=== PATIENT | female | born 1985 | race African-American/Black ===

== ENCOUNTER 2018-03-01 16:24 | Emergency (ER) | payer MEDICAID ==
[~2018-03-01] VITALS: Ht 170.2 cm; Wt 73.0 kg
[~2018-03-01 16:24] MED LIST: FERR1TAB51
[2018-03-01 18:15] VITALS: BP 134/85
[2018-03-01] MEDS ORDERED: CEFTRIAXONE SODIUM 1 G/VIAL IM ONE (18:15)
[2018-03-01] MEDS ORDERED: LIDOCAINE HCL 1% 20ML VIAL (Pyxis) INJ INFIL ONE (18:15)
[2018-03-01] MEDS ORDERED: ACETAMINOPHEN WITH CODEINE 300/30MG TABLET PO ONE (18:15)
== END 2018-03-01 18:32 | disposition home or self-care (01) ==
LOC: ER 16:48
DX: L03.317 Cellulitis of buttock (principal)
CPT/HCPCS: 96372; 99283; J0696; J3490

== ENCOUNTER 2019-05-10 11:54 | Emergency (ER) | payer MEDICAID ==
[~2019-05-10] VITALS: Ht 172.7 cm; Wt 82.0 kg
[2019-05-10 12:02] VITALS: BP 139/86
[2019-05-10] MEDS ORDERED: CLINDAMYCIN PHOSPHATE 600MG/4ML VIAL IM ONE (12:30)
[2019-05-10] MEDS ORDERED: CLINDAMYCIN PHOSPHATE 300MG/2ML VIAL IM NR ×2 (13:00)
== END 2019-05-10 13:06 | disposition home or self-care (01) ==
LOC: ER 11:54
DX: L02.31 Cutaneous abscess of buttock (principal)
CPT/HCPCS: 10060; 96372; 99283; J3490; Z7610

== ENCOUNTER 2019-10-22 21:31 | Emergency (ER) | payer MEDICAID ==
[~2019-10-22] VITALS: Ht 172.7 cm; Wt 77.0 kg
[2019-10-23] MEDS ORDERED: CLINDAMYCIN PHOSPHATE 600MG/4ML VIAL IM ONE (00:30)
[2019-10-23 00:46] VITALS: BP 138/89
== END 2019-10-23 00:47 | disposition home or self-care (01) ==
LOC: ER 21:31
DX: L02.215 Cutaneous abscess of perineum (principal); Z98.890 Other specified postprocedural states
CPT/HCPCS: 96372; 99283; J3490

== ENCOUNTER 2020-12-04 19:18 | Emergency (ER) | payer MEDICAID ==
[~2020-12-04] VITALS: Ht 172.7 cm; Wt 81.3 kg
[2020-12-04 20:35] LABS: CLARITY URINE CLOUDY (CLEAR); COLOR URINE YELLOW (YELLOW); KETONES URINE TRACE (NEGATIVE); LEUKOCYTE ESTERASE URINE NEGATIVE (NEGATIVE); NITRITE URINE NEGATIVE (NEGATIVE); OCCULT BLOOD URINE NEGATIVE (NEGATIVE); PH URINE 5.5 (4.5-8.0); PROTEIN URINE NEGATIVE (NEGATIVE); SPECIFIC GRAVITY URINE 1.032 (1.005-1.030); UROBILINOGEN URINE 0.2 E.U./dL (0.2-1.0)
[2020-12-04] MEDS ORDERED: CEFTRIAXONE SODIUM 500 MG/VIAL IM ONE (22:00)
[2020-12-04 22:09] VITALS: BP 138/76
[2020-12-08 07:07] LABS: NEISSERIA GONORRHOEAE NAA Positive (Negative)
== END 2020-12-04 22:09 | disposition home or self-care (01) ==
LOC: ER 19:18
DX: N76.0 Acute vaginitis (principal); N72 Inflammatory disease of cervix uteri
CPT/HCPCS: 81003; 81025; 87210; 87491; 87591; 96372; 99283; J0696

== ENCOUNTER 2022-12-28 16:44 | Emergency (ER) | payer MEDICAID ==
[~2022-12-28] VITALS: Ht 175.3 cm; Wt 81.0 kg
[2022-12-28 17:16] VITALS: BP 161/117
[2022-12-28 20:25] LABS: CLARITY URINE CLOUDY (CLEAR); COLOR URINE YELLOW (YELLOW); KETONES URINE TRACE (NEGATIVE); LEUKOCYTE ESTERASE URINE 3+ (NEGATIVE); NITRITE URINE NEGATIVE (NEGATIVE); OCCULT BLOOD URINE TRACE (NEGATIVE); PH URINE 5.5 (4.5-8.0); PROTEIN URINE TRACE (NEGATIVE); SPECIFIC GRAVITY URINE 1.025 (1.005-1.030); UROBILINOGEN URINE 0.2 E.U./dL (0.2-1.0)
[2022-12-28] MEDS ORDERED: CEPH500T PO (21:21)
[2022-12-28] MEDS ORDERED: DOXY100C5 PO (21:28)
[2022-12-28] MEDS ORDERED: DOXYCYCLINE HYCLATE 100MG CAPSULE PO NR (21:30)
[2022-12-28] MEDS ORDERED: CEPHALEXIN 250MG CAPSULE PO ONE (21:30)
[2022-12-28] MEDS ORDERED: CEFTRIAXONE SODIUM 500 MG/VIAL IM NR (21:30)
[2022-12-28] MEDS ORDERED: LIDOCAINE HCL 1% 20ML VIAL (Pyxis) INJ INFIL NR (21:30)
== END 2022-12-28 21:59 | disposition home or self-care (01) ==
LOC: ER 16:44
DX: N39.0 Urinary tract infection, site not specified (principal); Z20.2 Contact with and (suspected) exposure to infections with a predominantly sexual mode of transmission; Z98.890 Other specified postprocedural states
CPT/HCPCS: 81003; 81025; 87086; 96372; 99283; J0696; J3490

== ENCOUNTER 2023-10-30 23:45 | Emergency (ER) | payer MEDICAID ==
[~2023-10-30] VITALS: Ht 175.3 cm; Wt 89.2 kg
[~2023-10-30 23:45] MED LIST changes: +CEPH500T PO; +DOXY100C5 PO
[2023-10-31 00:01] VITALS: O2SAT 99
[2023-10-31 01:30] LABS: BASOPHILS % 0.6 % (0.0-2.0); DIFFERENTIAL COMMENT 0; EOSINOPHILS % 4.1 % (0.0-5.0); HEMOGLOBIN. 9.7 g/dL (12.0-16.0); MEAN CORPUSCULAR HEMOGLOBIN 22.9 pg (28.0-32.0); MEAN CORPUSCULAR HGB CONC 31.2 g/dL (31.0-37.0); MEAN CORPUSCULAR VOLUME 73.4 fL (81.0-99.0); MEAN PLATELET VOLUME 7.6 fl (7.4-10.4); NEUTROPHILS % 57.3 % (40.0-76.0); PLATELET 495 x1000/uL (130-400); RED BLOOD CELL COUNT 4.23 mill/uL (4.2-5.4); RED CELL DISTRIBUTION WIDTH 18.3 % (11.6-14.6); WHITE BLOOD COUNT 8.4 x1000/uL (4.5-11.0)
[2023-10-31 01:40] LABS: ALANINE AMINOTRANSFERASE 12 IU/L (10-49); ALBUMIN 4.4 g/dL (3.2-4.8); ASPARTATE AMINOTRANSFERASE 16 IU/L (<34); BILIRUBIN TOTAL 0.4 mg/dL (0.1-1.0); CALCIUM 9.6 mg/dL (8.7-10.4); CARBON DIOXIDE 26 mEq/L (21-32); CHLORIDE 107 mEq/L (98-107); CREATININE 0.9 mg/dL (0.6-1.0); GLUCOSE 96 mg/dL (70-105); POTASSIUM 3.9 mEq/L (3.5-5.1); PROTEIN TOTAL 7.4 g/dL (6.0-8.3); SODIUM 140 mEq/L (136-145); UREA NITROGEN BLOOD 9 mg/dL (9-23)
[2023-10-31 01:51] LABS: PROTHROMBIN TIME 10.3 sec (9.6-11.0)
[2023-10-31] MEDS ORDERED: CEFTRIAXONE SODIUM 250 MG/VIAL IM ONE (06:00)
[2023-10-31 06:10] VITALS: BP 141/47; PULSE 97; RESP 16; TEMP 98.1
== END 2023-10-31 06:13 | disposition home or self-care (01) ==
LOC: ER 23:45
DX: G03.9 Meningitis, unspecified (principal); Z98.890 Other specified postprocedural states
CPT/HCPCS: 99283; 80053; 85025; 85610; 87040; 36415; 96372; J0696

== ENCOUNTER 2024-08-14 13:36 | Emergency (ER) | payer SELFPAY ==
[~2024-08-14] VITALS: Ht 172.7 cm; Wt 85.0 kg
[2024-08-14 13:50] VITALS: O2SAT 100
[2024-08-14] MEDS: LIDOCAINE HCL 1% 20ML VIAL INFIL ONE (17:55)
[2024-08-14 18:12] VITALS: TEMP 36.89184; O2SAT 99
[2024-08-14 18:45] VITALS: BP 135/81; PULSE 88; RESP 14
[2024-08-14] MEDS: IBUPROFEN 600MG TABLET PO ONE (18:45)
== END 2024-08-14 18:47 | disposition home or self-care (01) ==
LOC: ER 13:43
DX: N75.1 Abscess of Bartholin's gland (principal); Z98.890 Other specified postprocedural states
CPT/HCPCS: 56420; 99284; J3490; Z7610 ×3; 99282